=== PATIENT | female | born 1950 | race Caucasian/White ===

== ENCOUNTER 2021-07-27 10:41 | Inpatient (IN) | payer OTHER, MEDICARE ==
[2021-07-27 12:21] LABS: BASO % 0.3 % (0-2.0); HEMATOCRIT 38.7 % (32.4-45.2); HEMOGLOBIN 13.3 GM/dL (10.7-15.3); LYMPH % 6.9 % (8-40); MCH 31.2 pg (25.7-33.7); MCHC 34.3 g/dl (32.0-36.0); MEAN PLT VOLUME 8.2 fl (7.5-11.1); MONO % 7.9 % (3.8-10.2); NEUT % 84.9 % (42.8-82.8); PLATELET COUNT 158 10^3/uL (134-434); RBC 4.25 M/mm3 (3.60-5.2); RDW 12.8 % (11.6-15.6); WHITE BLOOD COUNT 9.2 K/mm3 (4.0-10.0)
[2021-07-27 12:47] LABS: CHLORIDE 122 mmol/L (98-107)
[2021-07-27 12:51] LABS: CALCIUM 9.4 mg/dL (8.5-10.1)
[2021-07-27 12:52] LABS: ALBUMIN 3.8 g/dl (3.4-5.0); BLOOD UREA NITROGEN 24.3 mg/dL (7-18); CO2 31 mmol/L (21-32); GLUCOSE,RANDOM 142 mg/dL (74-106); MAGNESIUM 2.7 mg/dL (1.8-2.4)
[2021-07-27 12:54] LABS: CREATININE 0.7 mg/dL (0.55-1.3)
[2021-07-27 12:55] LABS: SGOT/AST 30 U/L (15-37); SGPT/ALT 32 U/L (13-61)
[2021-07-27 12:56] LABS: BILIRUBIN,TOTAL 0.5 mg/dL (0.2-1); LACTIC ACID 2.1 mmol/L (0.4-2.0); TOT PROT 7.2 g/dl (6.4-8.2)
[2021-07-27 12:57] LABS: ALK PHOS 64 U/L (45-117)
[2021-07-27 12:59] LABS: ANION GAP 11 MMOL/L (8-16); SODIUM 164 mmol/L (136-145)
[2021-07-27] MEDS ORDERED: LACTATED RINGERS SOLUTION 1,000 ML/1,000 ML INFUS.BAG IV SCH (13:15)
[2021-07-27] MEDS ORDERED: SODIUM CHLORIDE 0.45% 1,000 ML IV SCH (17:30)
[2021-07-27 18:19] LABS: CALCIUM 9.1 mg/dL (8.5-10.1)
[2021-07-27 18:20] LABS: BLOOD UREA NITROGEN 21.3 mg/dL (7-18)
[2021-07-27 18:23] LABS: CREATININE 0.6 mg/dL (0.55-1.3)
[2021-07-27] MEDS ORDERED: ACETAMINOPHEN 1000 MG/100 ML BAG IVPB PRN (18:45)
[2021-07-27 19:45] LABS: URINE APPEARANCE CLEAR; URINE BILIRUBIN NEGATIVE (NEGATIVE); URINE COLOR YELLOW; URINE GLUCOSE (UA) NEGATIVE (NEGATIVE); URINE KETONE NEGATIVE (NEGATIVE); URINE LEUK ESTERASE NEGATIVE (NEGATIVE); URINE NITRITE NEGATIVE (NEGATIVE); URINE PROTEIN TRACE (NEGATIVE); URINE UROBILINOGEN 0.2 mg/dL (0.2-1.0)
[2021-07-28 08:49] LABS: BASO % 0.4 % (0-2.0); EOS % 0.8 % (0-4.5); HEMATOCRIT 36.1 % (32.4-45.2); HEMOGLOBIN 12.2 GM/dL (10.7-15.3); LYMPH % 16.9 % (8-40); MCH 30.9 pg (25.7-33.7); MCHC 33.7 g/dl (32.0-36.0); MEAN CELL VOLUME 91.5 fl (80-96); MEAN PLT VOLUME 8.5 fl (7.5-11.1); MONO % 9.1 % (3.8-10.2); NEUT % 72.8 % (42.8-82.8); PLATELET COUNT 142 10^3/uL (134-434); RBC 3.94 M/mm3 (3.60-5.2); RDW 12.7 % (11.6-15.6); WHITE BLOOD COUNT 7.3 K/mm3 (4.0-10.0)
[2021-07-28 11:24] LABS: CALCIUM 8.4 mg/dL (8.5-10.1)
[2021-07-28 11:25] LABS: BLOOD UREA NITROGEN 15.4 mg/dL (7-18)
[2021-07-28 11:26] LABS: MAGNESIUM 2.2 mg/dL (1.8-2.4)
[2021-07-28 11:28] LABS: CREATININE 0.5 mg/dL (0.55-1.3); PHOSPHOROUS 2.2 mg/dL (2.5-4.9)
[2021-07-28 12:15] VITALS: BMI 18.7
[2021-07-28] MEDS: KCL 10 MEQ IVPB 10 MEQ/100 ML INFUS.BAG IVPB SCH ×3 (13:42→15:39)
[2021-07-28] MEDS ORDERED: SODIUM CHLORIDE 1,000 ML IV SCH (14:00)
[2021-07-28] MEDS ORDERED: MELATONIN 5 MG TABLETS PO PRN (14:43)
[2021-07-28] MEDS ORDERED: POTASSIUM PHOSPHATE 30 MM in SODIUM CHLORIDE 250 ML IVPB ONE (15:39)
[2021-07-28] MEDS: ALBUTEROL SO4 2.5/IPRATROPIUM 0.5 INH SOL 3 ML VIAL.NEB. NEB SCH (20:00)
[2021-07-28] MEDS: POTASSIUM CHLORIDE 10 MEQ in SODIUM CHLORIDE 1,000 ML IV SCH (20:49)
[2021-07-28] MEDS ORDERED: DOCUSATE SODIUM 100 MG CAPSULE (FP) PO SCH (22:00)
[2021-07-28] MEDS: POLYETHYLENE GLYCOL (HEALTHYLAX) 3350 17 GM PACKET PO SCH (22:03)
[2021-07-29] MEDS: ALBUTEROL SO4 2.5/IPRATROPIUM 0.5 INH SOL 3 ML VIAL.NEB. NEB SCH ×3 (08:29→20:15)
[2021-07-29] MEDS: POLYETHYLENE GLYCOL (HEALTHYLAX) 3350 17 GM PACKET PO SCH ×2 (11:06→22:18)
[2021-07-29] MEDS: POTASSIUM CHLORIDE 10 MEQ in SODIUM CHLORIDE 1,000 ML IV SCH ×2 (11:08→19:09)
[2021-07-29] MEDS: ENOXAPARIN NA (PORCINE) 40 MG/0.4 ML DISP.SYRIN SQ SCH (11:11)
[2021-07-29 11:18] LABS: BASO % 0.3 % (0-2.0); EOS % 1.5 % (0-4.5); HEMATOCRIT 39.5 % (32.4-45.2); HEMOGLOBIN 13.5 GM/dL (10.7-15.3); LYMPH % 19.8 % (8-40); MCH 31.1 pg (25.7-33.7); MCHC 34.2 g/dl (32.0-36.0); MEAN CELL VOLUME 90.9 fl (80-96); MONO % 8.2 % (3.8-10.2); NEUT % 70.2 % (42.8-82.8); PLATELET COUNT 142 10^3/uL (134-434); RBC 4.34 M/mm3 (3.60-5.2); RDW 12.4 % (11.6-15.6); WHITE BLOOD COUNT 6.3 K/mm3 (4.0-10.0)
[2021-07-29 12:07] LABS: BLOOD UREA NITROGEN 12.7 mg/dL (7-18)
[2021-07-29 12:08] LABS: CALCIUM 8.7 mg/dL (8.5-10.1)
[2021-07-29 12:10] LABS: CREATININE 0.5 mg/dL (0.55-1.3)
[2021-07-30] MEDS: POTASSIUM CHLORIDE 10 MEQ in SODIUM CHLORIDE 1,000 ML IV SCH ×2 (01:13→06:49)
[2021-07-30] MEDS: ALBUTEROL SO4 2.5/IPRATROPIUM 0.5 INH SOL 3 ML VIAL.NEB. NEB SCH (07:33)
[2021-07-30 08:56] LABS: BASO % 0.1 % (0-2.0); EOS % 2.9 % (0-4.5); HEMATOCRIT 40.1 % (32.4-45.2); HEMOGLOBIN 13.3 GM/dL (10.7-15.3); LYMPH % 25.2 % (8-40); MCH 30.3 pg (25.7-33.7); MCHC 33.1 g/dl (32.0-36.0); MEAN CELL VOLUME 91.5 fl (80-96); MEAN PLT VOLUME 8.6 fl (7.5-11.1); MONO % 7.6 % (3.8-10.2); NEUT % 64.2 % (42.8-82.8); PLATELET COUNT 142 10^3/uL (134-434); RBC 4.38 M/mm3 (3.60-5.2); RDW 12.4 % (11.6-15.6); WHITE BLOOD COUNT 6.9 K/mm3 (4.0-10.0)
[2021-07-30] MEDS: ENOXAPARIN NA (PORCINE) 40 MG/0.4 ML DISP.SYRIN SQ SCH (09:14)
[2021-07-30] MEDS: POLYETHYLENE GLYCOL (HEALTHYLAX) 3350 17 GM PACKET PO SCH (09:14)
[2021-07-30 09:19] LABS: CALCIUM 8.2 mg/dL (8.5-10.1); MAGNESIUM 2.3 mg/dL (1.8-2.4)
[2021-07-30 09:22] LABS: CREATININE 0.5 mg/dL (0.55-1.3); PHOSPHOROUS 2.3 mg/dL (2.5-4.9)
[2021-07-30 09:23] LABS: TOT PROT 5.9 g/dl (6.4-8.2)
[2021-07-30 09:24] LABS: BILIRUBIN,TOTAL 0.8 mg/dL (0.2-1)
[2021-07-30 10:39] VITALS: BP 117/66; PULSE 86; TEMP 97.7
== END 2021-07-30 12:55 | DRG 391 ==
LOC: JER 10:41 → JERBED 16:28 → J8W 22:19
PROVIDERS: ADMIT Internal Medicine; ATTEND Internal Medicine
DX: K59.00 Constipation, unspecified (principal); R53.2 Functional quadriplegia; E87.0 Hyperosmolality and hypernatremia; E87.6 Hypokalemia; E86.0 Dehydration; L89.152 Pressure ulcer of sacral region, stage 2; G30.9 Alzheimer's disease, unspecified; F02.80 Dementia in other diseases classified elsewhere, unspecified severity, without behavioral disturbance, psychotic disturbance, mood disturbance, and anxiety; K63.89 Other specified diseases of intestine
CPT/HCPCS: 36415; 74018-TC-FY; 74177-TC; 80048; 80053; 81003; 83605; 83735; 83930; 83935; 84100; 84295; 84300; 84443; 85025; 94640; 99285-25; C9803-CS; Q9967; U0003; U0005